=== PATIENT | female | born 1965 | race Caucasian/White ===

== ENCOUNTER 2020-07-28 08:16 | Emergency (ER) | payer OTHER ==
[~2020-07-28] VITALS: Ht 154.9 cm; Wt 63.5 kg
[~2020-07-28 08:16] MED LIST: ALEVE220 MG PO; KEFLEX500 MG PO; PERCOCET 5-3251 EACH PO; ULTRAM50 MG PO
[2020-07-28] MEDS ORDERED: GABAPENTIN600 MG PO (08:27)
[2020-07-28] MEDS ORDERED: FLUOXETINE HCL20 MG PO (08:27)
[2020-07-28] MEDS ORDERED: OMEPRAZOLE20 MG PO (08:27)
[2020-07-28] MEDS ORDERED: ANUSOL-HC25 MG PR (11:35)
== END 2020-07-28 11:50 | disposition home or self-care (01) ==
LOC: ED 08:16
DX: K64.8 Other hemorrhoids (principal); K21.9 Gastro-esophageal reflux disease without esophagitis; F32.9 Major depressive disorder, single episode, unspecified; Z87.891 Personal history of nicotine dependence; Z88.5 Allergy status to narcotic agent; Z79.899 Other long term (current) drug therapy
CPT/HCPCS: 74177; 80053; 85025; 85610; 85730; 86850; 86900; 86901; 99284-25; Q9967

== ENCOUNTER 2021-08-11 12:49 | Day surgery (SDC) | payer OTHER ==
[~2021-08-11] VITALS: Ht 154.9 cm; Wt 66.8 kg
[~2021-08-11 12:49] MED LIST changes: +AMOXICILLIN500 MG PO; +ANUSOL-HC25 MG PR; +FLUOXETINE HCL20 MG PO; +GABAPENTIN600 MG PO; +LEVOCETIRIZINE D5 MG PO; +OMEPRAZOLE20 MG PO; +OXYCODONE HCL5 MG PO
--- NOTE | 2021-08-11 15:47 | NUR ---
08/11/21 1547 Maddi Littlejohn 1542 PATIENT ARRIVES TO PACU AWAKE BUT VERY DROWSY. RESTING WITH EYES CLOSED WHEN NOT STIMULATED. RESP EVEN AND UNLABORED, NC AT 3 LITERS.
--- NOTE | 2021-08-12 10:08 | OR ---
[facility] [address] [place], [place] [address] Signed DATE OF OPERATION: 08/11/2021 SURGEON: Nora Fields MD PREOPERATIVE DIAGNOSES: 1. Gastroesophageal reflux symptoms. 2. Episodic rectal bleeding. POSTOPERATIVE DIAGNOSES: 1. Hiatal hernia with low-grade Mcmullen's esophagus. 2. Diminutive polyp of rectum and minimal internal hemorrhoidal change. PROCEDURE: 1. Esophagogastroduodenoscopy with biopsy. 2. Total colonoscopy to cecum with cold morcellation polypectomy of small polyp of rectum. ANESTHESIA: Intravenous sedation, fentanyl 150 mcg and Versed 7 mg. INDICATION: This 56-year-old white woman is a patient of Dr. Renae and referred for colonoscopy for episodic rectal bleeding. In addition, she has rather significant and severe reflux symptoms, though she does take Prilosec on a routine basis. She has no dysphagia. She is admitted at this time to undergo upper endoscopy and colonoscopy to better characterize each problem, understand the risks of bleeding, infection and perforation. FINDINGS: Upper endoscopy showed a hiatal hernia and Mcmullen's esophagus, but no sign of stricture or neoplasm. CLOtest was negative. On colonoscopy, the prep was excellent and complete colonoscopy showed no sign of abnormality other than a diminutive polyp of the rectum that would not account for bleeding as well as internal hemorrhoidal change. DESCRIPTION OF PROCEDURE: The patient was brought to the endoscopy suite and placed in the lateral decubitus position and underwent lidocaine hypopharyngeal anesthesia. A bite block was placed. Intravenous sedation was induced to the point of slurred speech and nystagmus. An Olympus video upper endoscope was passed in the hypopharynx. The vocal cords appeared Electronically Signed By: NORA FIELDS MD 08/12/21 1008 PATIENT NAME: AZIZA NIETO OPERATIVE REPORT DATE OF : 65 REPORT #: [id number] PHYSICIAN: NORA FIELDS MD PCP: OLEGARIO RENAE DO REPORT IS CONFIDENTIAL AND NOT TO BE RELEASED WITHOUT AUTHORIZATION [facility] [address] [place], [place] [address] Signed normal. Scope was advanced to the esophagus, throughout its length it was normal initially. Scope was passed to the stomach and was insufflated with air. Rugal folds were normal. The antrum was normal. The pylorus was normal. Scope was passed through into the duodenum, which was also normal. Biopsies were obtained to assess for celiac disease. Scope was withdrawn. A biopsy was then taken of the antrum for both KRISTIAN and pathologic testing. Retroflexed view showed a sizable hiatal hernia. No sign of proximal ulceration. The scope was withdrawn to the distal esophagus where Mcmullen's epithelium was noted. Small islands of Mcmullen's were seen. There was no sign of stricture or neoplasm. Biopsies were obtained. The scope was withdrawn and biopsies then taken of the mid esophagus. The scope was removed and plans made for colonoscopy. Additional sedation was given. Digital rectal examination was performed which was normal. An Olympus video colonoscope was passed in the rectum and manipulated throughout the colon ultimately intubating the cecum. The ileocecal valve and appendiceal orifice were normal. Scope was withdrawn from that point. Examination throughout showed no sign of abnormality to account for bleeding. In the rectum, there was a small diminutive polyp which was excised with cold morcellation technique. Minimal internal hemorrhoidal change was noted. The scope was removed and the patient was taken to the recovery room in good condition. CONCLUDING DIAGNOSIS: Gastroesophageal reflux related to hiatal hernia; Mcmullen's esophagus identified. PLAN: 1. Continue PPI medication. We will review her pathology reports. We would recommend repeat upper endoscopy in 3 years to 5 years considering the Mcmullen's diagnosis. 2. Colon with no worrisome lesions to account for bleeding most likely this would be a hemorrhoidal in relation. We would recommend office hemorrhoidal banding if the patient should have recurrent bleeding. In the meantime, maintain high-fiber diet or Metamucil fiber supplement one scoop daily. She will return to the ongoing care of Dr. Olegario Renae. MD KENDALL Polanco/DEBRAL /[id number] Electronically Signed By: NORA FIELDS MD 08/12/21 1008 PATIENT NAME: AZIZA NIETO OPERATIVE REPORT DATE OF : 65 REPORT #: [id number] PHYSICIAN: NORA FIELDS MD PCP: OLEGARIO RENAE DO REPORT IS CONFIDENTIAL AND NOT TO BE RELEASED WITHOUT AUTHORIZATION [facility] [address] [place], [place] [address] Signed cc: Olegario Renae DO Copies: OLEGARIO RENAE DO ~ Electronically Signed By: NORA FIELDS MD 08/12/21 1008 PATIENT NAME: AZIZA NIETO OPERATIVE REPORT DATE OF : 65 REPORT #: [id number] PHYSICIAN: NORA FIELDS MD PCP: OLEGARIO RENAE DO REPORT IS CONFIDENTIAL AND NOT TO BE RELEASED WITHOUT AUTHORIZATION
--- NOTE | 2021-08-14 17:13 | PATH ---
[facility] [address] [facility] [place], [place] [address] Signed SPECIMEN(S): A DUODENAL BIOPSY SPECIMEN(S): B ANTRUM/PYLORUS BIOPSY SPECIMEN(S): C LOWER ESOPHAGEAL BIOPSY SPECIMEN(S): D MID ESOPHAGEAL BIOPSY SPECIMEN(S): E DIMINUTIVE RECTAL POLYP SPECIMEN SOURCE: A. DUODENAL BIOPSY B. ANTRUM/PYLORUS BIOPSY C. LOWER ESOPHAGEAL BIOPSY D. MID ESOPHAGEAL BIOPSY E. DIMINUTIVE RECTAL POLYP CLINICAL HISTORY: Pre: esophageal dysphasia, abdominal pain, rectal bleeding. Post: Hiatal hernia, Mcmullen's esophagus, colon polyp FINAL PATHOLOGIC DIAGNOSIS: A. Duodenal biopsy: - Benign duodenal mucosa, negative for specific diagnostic abnormality. B. Antrum/pylorus biopsy: - Diffuse superficial chronic gastritis. - Helicobacter pylori immunostain is positive for organisms. C. Lower esophageal biopsy: - Benign esophageal mucosa, negative for increased epithelial eosinophils with scant glandular epithelium, negative for specialized intestinal metaplasia or dysplasia. D. Mid esophageal biopsy: - Benign esophageal epithelium, negative for increased epithelial eosinophils. E. Diminutive rectal polyp: - Benign hyperplastic polyp (one fragment). JVR:llc:[id number] MICROSCOPIC EXAMINATION: POSITIVE for Helicobacter pylori in block B1. JVR:llc Histologic sections of all submitted blocks are examined by light microscopy. These findings, together with the gross examination, support the pathologic diagnosis. GROSS DESCRIPTION: PATIENT NAME: AZIZA NIETO PATHOLOGY DATE OF : 65 REPORT #: [id number] PHYSICIAN: OSVALDO ADAMS PCP: OLEGARIO RENAE DO REPORT IS CONFIDENTIAL AND NOT TO BE RELEASED WITHOUT AUTHORIZATION [facility] [address] [place], [place] [address] Signed Five specimens are received in five containers, labeled "TK." A. The specimen, labeled "TK, 1," and designated on the requisition "duodenum biopsy," is received in formalin and consists of two calero soft tissue fragments that measure 0.3 and 0.4 cm in greatest dimension. The specimen is entirely submitted in cassette (A1). B. The specimen, labeled "TK, 2," and designated on the requisition "antrum/pylorus biopsy," is received in formalin and consists of two calero soft tissue fragments that measure 0.2 and 0.6 cm in greatest dimension. The specimen is entirely submitted in cassette (B1). C. The specimen, labeled "TK, 3," and designated on the requisition "lower esophagus biopsy," is received in formalin and consists of three calero-white soft tissue fragments that measure 0.4 to 0.5 cm in greatest dimension. The specimen is entirely submitted in cassette (C1). D. The specimen, labeled "TK, 4," and designated on the requisition "mid esophagus biopsy," is received in formalin and consists of two calero-white soft tissue fragments that measure 0.3 and 0.5 cm in greatest dimension. The specimen is entirely submitted in cassette (D1). E. The specimen, labeled "TK, 5," and designated on the requisition "rectum polypectomy," is received in formalin and consists of one calero-white soft tissue fragment that measures 0.2 cm in greatest dimension. The specimen is entirely submitted in cassette (E1). AI (under the direct supervision of a pathologist) The Gross Description was prepared using a voice recognition system. The report was reviewed for accuracy; however, sound-alike word errors, addition and/or deletions may occur. If there is any question about this report, please contact Client Services. ADDITIONAL NOTES: Immunohistochemical and/or in situ hybridization studies were performed on this case with the appropriate positive controls that react as expected. This test was developed and its performance characteristics determined by [facility]. It has not been cleared or approved by the U.S. Food and Drug Administration. The FDA has determined that such clearance or approval is not necessary. This test is used for clinical purposes. It should not be regarded as investigational or for research. [facility] is certified under the Clinical Laboratory Improvement Amendments of 1988 (CLIA) as qualified to perform high complexity clinical laboratory testing. This assay has not been validated for specimens that have been decalcified. PATIENT NAME: AZIZA NIETO PATHOLOGY DATE OF : 65 REPORT #: [id number] PHYSICIAN: OSVALDO ADAMS PCP: OLEGARIO RENAE DO REPORT IS CONFIDENTIAL AND NOT TO BE RELEASED WITHOUT AUTHORIZATION [facility] [address] [place], [place] [address] Signed PERFORMING LABORATORY: The technical component was performed by [facility], [address] [place] [id number] (Fire Manager: Margaret Chowdary MD; CLIA# [id number]). Professional interpretation was performed by [facility], [facility], [facility] [place] [address]. Diagnostician: Florencio Pate MD Pathologist Electronically Signed 08/14/2021 Copies: ~ PATIENT NAME: AZIZA NIETO PATHOLOGY DATE OF : 65 REPORT #: [id number] PHYSICIAN: OSVALDO ADAMS PCP: OLEGARIO RENAE DO REPORT IS CONFIDENTIAL AND NOT TO BE RELEASED WITHOUT AUTHORIZATION
== END 2021-08-11 16:20 | disposition home or self-care (01) ==
LOC: OPS 12:49 → DS 12:49 → OPS 14:15 → DS 14:15 → OPS 16:20
PROVIDERS: ATTEND Surgery
PROC: 0DB98ZX Excision of Duodenum, Via Natural or Artificial Opening Endoscopic, Diagnostic (ICD-10-PCS; 2021-08-11)
PROC: 0DB28ZX Excision of Middle Esophagus, Via Natural or Artificial Opening Endoscopic, Diagnostic (ICD-10-PCS; 2021-08-11)
PROC: 0DB38ZX Excision of Lower Esophagus, Via Natural or Artificial Opening Endoscopic, Diagnostic (ICD-10-PCS; 2021-08-11)
PROC: 0DB78ZX Excision of Stomach, Pylorus, Via Natural or Artificial Opening Endoscopic, Diagnostic (ICD-10-PCS; principal; 2021-08-11 14:15)
PROC: 0DBP8ZX Excision of Rectum, Via Natural or Artificial Opening Endoscopic, Diagnostic (ICD-10-PCS; 2021-08-11 14:15)
DX: K22.70 Barrett's esophagus without dysplasia (principal); K29.30 Chronic superficial gastritis without bleeding; B96.81 Helicobacter pylori [H. pylori] as the cause of diseases classified elsewhere; K21.9 Gastro-esophageal reflux disease without esophagitis; K44.9 Diaphragmatic hernia without obstruction or gangrene; K62.1 Rectal polyp; Z86.59 Personal history of other mental and behavioral disorders; G47.01 Insomnia due to medical condition; Z88.6 Allergy status to analgesic agent; Z88.5 Allergy status to narcotic agent; Z87.891 Personal history of nicotine dependence
CPT/HCPCS: 99153; G0500; J2250; J3010; J7121

== ENCOUNTER 2023-08-23 18:25 | Emergency (ER) | payer OTHER ==
[~2023-08-23] VITALS: Ht 154.9 cm; Wt 57.0 kg
[2023-08-23] MEDS ORDERED: MONTELUKAST SOD10 MG PO (18:51)
[2023-08-23] MEDS ORDERED: FOLIC ACID1 MG PO (18:51)
[2023-08-23 19:47] LABS: MCV 85.3 fl (81-99)
[2023-08-23 19:49] LABS: BASOPHILS 0.8 % (0-2); EOSINOPHILS 0.6 % (0-6); HEMATOCRIT 36.8 % (35.0-50.0); HEMOGLOBIN 11.6 g/dL (12.0-18.0); LYMPHOCYTES 7.1 % (24-44); MCH 26.9 (27-36); MCHC 31.6 g/dl (30-36); MONOCYTES 4.9 % (0-12); NEUTROPHILS 86.6 % (39-80); PLATELET COUNT 339 K/uL (140-440); RBC 4.31 M/ul (4.3-5.7); RDW 23.4 (10.5-15.0)
[2023-08-23 19:52] LABS: INFLUENZA B NAA NEGATIVE (NEGATIVE); RESPIRATORY SYNCYTIAL VIR NAA NEGATIVE (NEGATIVE)
[2023-08-23 20:12] LABS: ALBUMIN 3.8 g/dL (3.4-5.0); ALBUMIN/GLOBULIN RATIO 0.97 (1.1-2.4); ANION GAP 16.1 (7-21); BILIRUBIN, TOTAL 0.5 ng/dL (0.2-1.0); BUN/CREATININE RATIO 13.84 (6.0-28.6); CALCIUM 9.2 mg/dL (8.5-10.1); CREATININE, SERUM 0.65 mg/dL (0.55-1.02); POTASSIUM 3.1 mmol/L (3.5-5.1); PROTEIN, TOTAL 7.7 g/dL (6.4-8.2)
[2023-08-23] MEDS ORDERED: LASIX20 MG PO (22:34)
[2023-08-23] MEDS ORDERED: COREG3.125 MG PO (22:34)
[2023-08-23 22:52] VITALS: BP 144/89
--- NOTE | 2023-08-24 06:34 | EKG ---
[facility] [address] [facility] [place] [address] Signed Normal sinus rhythm with sinus arrhythmia Low voltage QRS T wave inversion in inferior and anterior leads Marked T wave abnormality, consider inferior ischemia Marked T wave abnormality, consider anterolateral ischemia Prolonged QT Abnormal ECG No previous ECGs available Confirmed by JESSICA WAYNE MD ([id number]) on 08/24/2023 6:34:19 AM Electronically Signed By: JESSICA WAYNE 08/24/23 0634 PATIENT NAME: AZIZA NIETO Electrocardiogram DATE OF : 65 PHYSICIAN: JESSICA WAYNE REPORT #: [id number] REPORT IS CONFIDENTIAL AND NOT TO BE RELEASED WITHOUT AUTHORIZATION
--- NOTE | 2023-08-24 06:37 | EKG ---
[facility] [address] [facility] [place] [address] Signed Normal sinus rhythm t wave inversion in inferior and anterolateral leads Marked T wave abnormality, consider inferior ischemia Marked T wave abnormality, consider anterolateral ischemia Prolonged QT Abnormal ECG When compared with ECG of 23-AUG-2023 19:08, (Unconfirmed) No significant change was found Confirmed by JESSICA WAYNE MD ([id number]) on 08/24/2023 6:36:44 AM Electronically Signed By: JESSICA WAYNE 08/24/23 0637 PATIENT NAME: AZIZA NIETO Electrocardiogram DATE OF : 65 PHYSICIAN: JESSICA WAYNE REPORT #: [id number] REPORT IS CONFIDENTIAL AND NOT TO BE RELEASED WITHOUT AUTHORIZATION
== END 2023-08-23 22:53 | disposition home or self-care (01) ==
LOC: ED 18:25
PROVIDERS: Emergency Medicine; Family Medicine
DX: I50.9 Heart failure, unspecified (principal); K21.9 Gastro-esophageal reflux disease without esophagitis; G62.9 Polyneuropathy, unspecified; Z11.52 Encounter for screening for COVID-19; Z79.899 Other long term (current) drug therapy; Z88.5 Allergy status to narcotic agent; Z87.891 Personal history of nicotine dependence
CPT/HCPCS: 36415; 71045; 71260; 80053; 83880; 84484; 85025; 85060; 85379; 86140; 87502; 93005; 93010; C9803; J1940; Q9967; U0002

== ENCOUNTER 2023-10-17 09:51 | Emergency (ER) | payer OTHER ==
[~2023-10-17] VITALS: Ht 154.9 cm; Wt 70.0 kg
[~2023-10-17 09:51] MED LIST changes: +COREG3.125 MG PO; +FOLIC ACID1 MG PO; +LASIX20 MG PO; +MONTELUKAST SOD10 MG PO
[2023-10-17] MEDS ORDERED: SODIUM CHLORIDE 0.9% 1,000 ML IV ONE (10:30)
[2023-10-17] MEDS ORDERED: ondansetron HCL 4 MG/2 ML VIAL IV ONE (10:30)
[2023-10-17 10:59] LABS: EOSINOPHILS 0.1 % (0-6); HEMATOCRIT 34.9 % (35.0-50.0); HEMOGLOBIN 11.6 g/dL (12.0-18.0); LYMPHOCYTES 8.5 % (24-44); MCH 29.9 (27-36); MCHC 33.2 g/dl (30-36); MONOCYTES 4.8 % (0-12); NEUTROPHILS 85.6 % (39-80); PLATELET COUNT 325 K/uL (140-440); RBC 3.87 M/ul (4.3-5.7); RDW 18.4 (10.5-15.0)
[2023-10-17 11:25] LABS: ALBUMIN 3.8 g/dL (3.4-5.0); ALBUMIN/GLOBULIN RATIO 0.95 (1.1-2.4); ANION GAP 17.6 (7-21); BILIRUBIN, TOTAL 0.5 ng/dL (0.2-1.0); BUN/CREATININE RATIO 22.95 (6.0-28.6); CALCIUM 9.5 mg/dL (8.5-10.1); CREATININE, SERUM 0.61 mg/dL (0.55-1.02); POTASSIUM 3.6 mmol/L (3.5-5.1); PROTEIN, TOTAL 7.8 g/dL (6.4-8.2)
[2023-10-17 11:31] LABS: BILIRUBIN, URINE NEGATIVE (negative); BLOOD/HGB, URINE NEGATIVE (Negative); KETONE, URINE NEGATIVE (Negative); LEUK ESTERASE, URINE NEGATIVE (negative); NITRITE, URINE NEGATIVE (negative)
[2023-10-17] MEDS ORDERED: ONDANSETRON ODT8 MG PO (11:52)
[2023-10-17 12:35] VITALS: BP 141/82
== END 2023-10-17 12:35 | disposition home or self-care (01) ==
LOC: ED 09:51
PROVIDERS: Emergency Medicine
DX: K29.00 Acute gastritis without bleeding (principal); K21.9 Gastro-esophageal reflux disease without esophagitis; G62.9 Polyneuropathy, unspecified; Z87.891 Personal history of nicotine dependence; Z79.899 Other long term (current) drug therapy; Z88.5 Allergy status to narcotic agent
CPT/HCPCS: 36415; 80053; 81003; 83690; 84443; 85025; 96374; 99284-25; G0480; J2405; J7030

== ENCOUNTER 2024-08-07 07:50 | Emergency (ER) | payer OTHER ==
[~2024-08-07] VITALS: Ht 154.9 cm; Wt 73.9 kg
[~2024-08-07 07:50] MED LIST changes: +ONDANSETRON ODT8 MG PO
[2024-08-07] MEDS ORDERED: LIDODERM1 EACH TOP (08:44)
[2024-08-07] MEDS ORDERED: NAPROSYN500 MG PO (08:44)
[2024-08-07 08:55] VITALS: BP 133/88
== END 2024-08-07 08:55 | disposition home or self-care (01) ==
LOC: ED 07:50
DX: S42.032A Displaced fracture of lateral end of left clavicle, initial encounter for closed fracture (principal); S43.102A Unspecified dislocation of left acromioclavicular joint, initial encounter; K21.9 Gastro-esophageal reflux disease without esophagitis; Z87.81 Personal history of (healed) traumatic fracture; Z87.891 Personal history of nicotine dependence; Z88.5 Allergy status to narcotic agent; Z79.899 Other long term (current) drug therapy; W01.0XXA Fall on same level from slipping, tripping and stumbling without subsequent striking against object, initial encounter
CPT/HCPCS: 73030; 99283